=== PATIENT | male | born 1990 | race Caucasian/White ===

== ENCOUNTER → 2016-08-07 | Outpatient (CLI) | payer OTHER ==
[~2016-08-07] MED LIST: METHACHOLINE KIT (J7674) INH ONE
--- NOTE | 2016-08-07 10:52 | PFTRPT ---
METHACHOLINE CHALLENGE REPORT ORDERING PROVIDER: STEVEN Reyes DATE OF SERVICE: 08/07/16 INTERPRETATION: Spirometry was performed prior to and following the administration of serially increasing doses of methacholine hydrochloride. Baseline spirogram was normal. There was no change following administration of saline control. Thereafter, serially increasing doses of methacholine hydrochloride were administered. At the initial dose of 0.025 mg/dL, a 29% fall in the FEV1 was identified. This change was able to be reversed following the administration of beta-agonist bronchodilator. IMPRESSION: The above is a positive methacholine bronchoprovocation study, consistent with significant airway hyperresponsiveness. The PC20 was less than 0.025 mg/dL. MTDD
== END ==
LOC: M CARPUL 10:06
PROVIDERS: ATTEND Nurse Practitioner Adult Health
DX: R05 Cough (principal)